=== PATIENT | female | born 1980 | race African-American/Black ===

== ENCOUNTER 2021-01-29 18:14 | Inpatient (IN) | payer BC, OTHER ==
--- NOTE | 2021-01-29 20:54 | RAD REPORT ---
EXAM DESCRIPTION: RAD - Chest Single View - 01/29/2021 8:49 pm CLINICAL HISTORY: SOB COMPARISON: CHEST SINGLE VIEW dated 09/22/2011; CHEST SINGLE VIEW dated 09/21/2011; CHEST SINGLE VIEW dated 09/19/2011 FINDINGS: No evidence of edema or pneumonia. The heart size is within normal limits.No acute osseous abnormality. No significant pleural effusions or pneumothorax. IMPRESSION: No acute cardiopulmonary disease.
[2021-01-29] MEDS ORDERED: ONDANSETRON 4 MG/2 ML VIAL ONE (21:47)
[2021-01-29] MEDS ORDERED: NA CHLORIDE 0.9% 1,000 ML ONE (21:47)
[2021-01-29] MEDS ORDERED: METHYLPREDNISOLONE 125 MG INJ ONE (21:47)
[2021-01-29] MEDS ORDERED: ALBUTEROL INHALER 60 PUFF/8 GM IH ONE (21:47)
[2021-01-29] MEDS ORDERED: MORPHINE 2 MG/ML SYR ONE (21:51)
[2021-01-29 21:52] LABS: ALT/SGPT 51 U/L (12-78); Albumin 3.4 g/dL (3.4-5.0); Alkaline Phosphatase 106 U/L (45-117); BUN Blood Urea Nitrogen 16 mg/dL (7-18); Bicarbonate 27 mmol/L (21-32); Bilirubin Direct 0.2 mg/dL (0-0.2); Bilirubin Total 0.4 mg/dL (0.2-1.0); Glucose Level 98 mg/dL (74-106); Lipase 167 U/L (73-393); Protein, Total 8.9 g/dL (6.4-8.2); Sodium Level 135 mmol/L (136-145); Troponin (Emerg Dept Use Only) < 0.02 ng/mL (0.0-0.045)
[2021-01-29 22:19] LABS: AST/SGOT 90 U/L (15-37); Magnesium 1.7 mg/dL (1.8-2.4); NT PRO-BNP < 5 pg/mL (<125); Potassium 4.2 mmol/L (3.5-5.1)
[2021-01-29 22:43] LABS: Absolute Lymphocytes (CBC) 1.3 K/uL (0.7-4.9); Basophils % 0.4 % (0-1.3); Hematocrit 36.6 % (36.0-45.0); Lymphocytes % 40.7 % (15.3-44.8); MPV 11.8 fL (7.6-11.3); RBC Red Blood Cell Count 4.16 M/uL (3.86-4.86)
[2021-01-29 22:44] LABS: Protime INR 1.22
[2021-01-30] MEDS ORDERED: MORPHINE 2 MG/ML SYR ONE (00:14)
[2021-01-30 02:25] LABS: Urine Blood Negative (Negative); Urine Glucose Negative (Negative); Urine Protein 2+ (Negative); Urine Specific Gravity 1.015 (1.005-1.030); Urine pH 5.5 (5.0-7.0)
--- NOTE | 2021-01-30 02:54 | P.HP ---
Certification for Inpatient Patient admitted to: Observation With expected LOS: <2 Midnights Patient will require the following post-hospital care: None Practitioner: I am a practitioner with admitting privileges, knowledge of patient current condition, hospital course, and medical plan of care. Services: Services provided to patient in accordance with Admission requirements found in Title 42 Section 412.3 of the Code of Federal Regulations <Matthew Anton - Last Filed: 01/30/21 02:51> Patient History Date of Service: 01/30/21 Reason for admission: COVID-19 pneumonia History of Present Illness: 40-year-old -N[place]ien female with history of asthma, hypertension presents emergency department for shortness of breath. Patient reports testing positive for Covid on 01/26/2021, symptoms since 01/24/2021. Patient evaluated in the emergency department, labs significant for elevated D-dimer 1195 sodium 135, chest x-ray/CT PE protocol demonstrate mild groundglass opacities bilaterally. Patient saturating in the low 90s on room air, tachypneic, dyspneic. Patient very symptomatic at this time, ED progress is to be an observation for further evaluation and management. 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 - Family History Mother -: Hypertension Father -: Hypertension - Social History Smoking Status: Never smoker Alcohol use: No CD- Drugs: No Caffeine use: No Place of Residence: Home <Matthew Anton - Last Filed: 01/30/21 02:51> Date of Service: 02/01/21 <Yared Owen - Last Filed: 02/01/21 18:01> Allergies No Known Allergies Allergy (Verified 09/19/11 23:40) Home Medications: Levalbuterol Tartrate [Levalbuterol Tartrate Hfa] 2 puff IH Q4H PRN 01/30/21 hydroCHLOROthiazide [Hydrochlorothiazide*] 12.5 mg PO DAILY 01/30/21 Review of Systems 10-point ROS is otherwise unremarkable Respiratory: Cough, Dry, Shortness of Breath, SOB with Excertion <Matthew Anton - Last Filed: 01/30/21 02:51> Physical Examination - Physical Exam General: Alert, In no apparent distress HEENT: Atraumatic, PERRLA, Mucous membr. moist/pink, EOMI, Sclerae nonicteric Neck: Supple, 2+ carotid pulse no bruit, No LAD, Without JVD or thyroid a bnormality Respiratory: Diminished, Other (Tachypnea) Cardiovascular: Regular rate/rhythm, Normal S1 S2 Capillary refill: <2 Seconds Gastrointestinal: Normal bowel sounds, No tenderness Musculoskeletal: No tenderness Integumentary: No rashes Neurological: Normal speech, Normal strength at 5/5 x4 extr, Normal tone, Normal affect Lymphatics: No axilla or inguinal lymphadenopathy - Studies Laboratory Data (last 24 hrs) 01/29/21 21:18: PT 14.1 H, INR 1.22 01/29/21 21:18: WBC 3.30 L, Hgb 12.2, Hct 36.6, Plt Count 129 L 01/29/21 21:16: Sodium 135 L, Potassium 4.2, BUN 16, Creatinine 1.24, Glucose 98, Magnesium 1.7 L, Total Bilirubin 0.4, AST 90 H, ALT 51, Alkaline Phosphatase 106, Lipase 167 01/29/21 20:43: Lipase Cancelled Microbiology Data (last 24 hrs): 01/29/21 21:38 Throat Group A Streptococcus Rapid Screen - Final 01/29/21 21:38 Nasopharnyx Influenza Type A Antigen Screen - Final 01/29/21 21:38 Nasopharnyx Influenza Type B Antigen Screen - Final <Matthew Anton - Last Filed: 01/30/21 02:51> - Studies Microbiology Data (last 24 hrs): 01/29/21 21:38 Throat Culture & Sensitivity - Final NORMAL UPPER RESPIRATORY LUCA GROWN. <Yared Owen - Last Filed: 02/01/21 18:01> Assessment and Plan - Plan Assessment: Dyspnea, tachypnea secondary to COVID-19 pneumonia complicated with history of asthma Hypertension Obesity Plan: Dyspnea, tachypnea secondary to COVID-19 pneumonia complicated with history of asthma: Continue with IV steroids, oral supplements Daily CRP/ferritin pulmonology consulted. PRN albuterol inhaler. Daily right saturations, room air saturations for home O2, supplemental oxygen as needed. CRP level pending. Negative for PE. Patient nonvaccinated. Hypertension: Obtain and continue medications Obesity: Addressed last factors, patient at risk for worsening of coronavirus pneumonia. DVT PPX: Lovenox Code status: Full Discharge Plan: Home Plan to discharge in: 24 Hours - Advance Directives Does patient have a Living Will: No Does patient have a Durable POA for Healthcare: No - Code Status/Comfort Care Code Status Assessed: Yes (Full code) Critical Care: No Time Spent Managing Pts Care (In Minutes): 55 <Matthew Anton - Last Filed: 01/30/21 02:51> - Problems (Diagnosis) (1) Pneumonia due to COVID-19 virus Current Visit: Yes Status: Acute <Yared Owen - Last Filed: 02/01/21 18:01> Date of Service: 01/30/21 Agree with plan of care as mentioned above. Continue monitoring. Continue with current treatment as mentioned above Subjective: No significant changes Physical Examination: Vitals: Afebrile vital signs are stable Physical exam: Cardiovascular: Within normal limits. Lungs: Basilar rhonchi Abdomen: Within normal limits Neuro: Awake, alert, oriented to person place and time Assessment: 1. COVID-19 pneumonia Plan: 1. Continue with IV steroids 2. Monitor inflammatory markers 3. Repeat chest x-ray is symptoms are progressively worsening 4. O2 per protocol 5. Pulmonary consultation 6. Continue with albuterol inhaler therapy; also supportive care 7. Monitor LFTs 8. GI and DVT prophylax <Yared Owen - Last Filed: 02/01/21 18:01>
[2021-01-30] MEDS ORDERED: ACETAMINOPHEN 500 MG TAB ONE (03:33)
[2021-01-30] MEDS ORDERED: BENZONATATE 100 MG CAP PO ONE (03:33)
[2021-01-30] MEDS ORDERED: NA CHLORIDE 0.9% 1,000 ML ONE (03:33)
[2021-01-30] MEDS ORDERED: Magnesium Sulfate 2gm IVPB 2 G/50 ML BAG IV ONE (03:34)
[2021-01-30] MEDS ORDERED: MELATONIN 5 MG TABLET PO PRN (04:46)
[2021-01-30] MEDS ORDERED: ONDANSETRON 4 MG/2 ML VIAL IV PRN (04:46)
[2021-01-30 06:43] LABS: Absolute Lymphocytes (CBC) 0.7 K/uL (0.7-4.9); Basophils % 0.5 % (0-1.3); Hematocrit 37.1 % (36.0-45.0); Lymphocytes % 32.6 % (15.3-44.8); MPV 10.3 fL (7.6-11.3)
[2021-01-30 07:21] LABS: Bilirubin Total 0.4 mg/dL (0.2-1.0); Ferritin 849.9 ng/mL (8-388); Potassium 5.3 mmol/L (3.5-5.1); Protein, Total 7.7 g/dL (6.4-8.2); Thyroid Stimulating Hormone 0.18 uIU/mL (0.360-3.740)
[2021-01-30] MEDS ORDERED: METHYLPREDNISOLONE 125 MG INJ ONE (08:44)
[2021-01-30] MEDS ORDERED: ASCORBIC ACID 500 MG TABLET ONE ×2 (08:45→13:13)
[2021-01-30] MEDS ORDERED: THIAMINE HCL 100 MG TABLET ONE (08:45)
[2021-01-30] MEDS ORDERED: ASPIRIN EC 81 MG TAB PO ONE (08:45)
[2021-01-30] MEDS ORDERED: ENOXAPARIN 40 MG/0.4 ML SQ ONE (08:45)
[2021-01-30] MEDS ORDERED: ZINC SULFATE 220 MG CAP ONE (08:45)
[2021-01-30] MEDS ORDERED: VITAMIN D 1000 UNIT TAB ONE (08:45)
[2021-01-30] MEDS: METHYLPREDNISOLONE 40 MG INJ IV SCH ×2 (09:00→21:00)
[2021-01-30] MEDS: ENOXAPARIN 40 MG/0.4 ML SQ SCH (09:00)
[2021-01-30] MEDS: IVERMECTIN 3 MG TABLET PO SCH (09:00)
[2021-01-30] MEDS: ASPIRIN EC 81 MG TAB PO SCH (09:00)
[2021-01-30] MEDS: ASCORBIC ACID 500 MG TABLET PO SCH ×4 (09:00→21:00)
[2021-01-30] MEDS: THIAMINE HCL 100 MG TABLET PO SCH (09:00)
[2021-01-30] MEDS: VITAMIN D 1000 UNIT TAB PO SCH (09:00)
[2021-01-30] MEDS: ZINC SULFATE 220 MG CAP PO SCH (09:00)
[2021-01-30 09:08] LABS: Blood Morphology Comment NOT SEEN (NOT SEEN); Platelet Estimate DECR; White Blood Cell Scan OK (OK)
--- NOTE | 2021-01-30 10:44 | P.CNS ---
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 - Family History Father Medical History: Hypertension Mother Medical History: Hypertension - Social History Smoking Status: Never smoker Alcohol use: No CD- Drugs: No Caffeine use: No Place of Residence: Home Physical Examination Temp Pulse Resp BP Pulse Ox 98.0 F 69 20 114/81 98 01/30/21 08:00 01/30/21 08:00 01/30/21 08:00 01/30/21 08:00 01/30/21 08:00 Laboratory Data (last 24 hrs) 01/29/21 21:18: PT 14.1 H, INR 1.22 01/29/21 21:18: WBC 3.30 L, Hgb 12.2, Hct 36.6, Plt Count 129 L 01/29/21 21:16: Sodium 135 L, Potassium 4.2, BUN 16, Creatinine 1.24, Glucose 98, Magnesium 1.7 L, Total Bilirubin 0.4, AST 90 H, ALT 51, Alkaline Phosphatase 106, Lipase 167 01/29/21 20:43: Lipase Cancelled
--- NOTE | 2021-01-30 10:57 | RAD REPORT ---
EXAM DESCRIPTION: Chest For Pe Angio CLINICAL HISTORY: SOB COMPARISON: None Available. TECHNIQUE: CTA of the chest obtained following the uncomplicated intravenous administration of iodin ated contrast. 3-D/MIP reformatted images of the chest available for evaluation. This exam was perfor med according to our departmental dose-optimization program, which includes automated exposure contro l, adjustment of the mA and/or kV according to patient size and/or use of iterative reconstruction te chnique. FINDINGS: Chest: Pulmonary arteries: Contrast bolus is adequate.No filling defects identified in the pulmonary arterie s to suggest pulmonary embolus. Thyroid: No abnormalities of the visualized thyroid. Great Vessels: Great vessels have normal anatomic configuration. Thoracic Aorta: Atherosclerotic calcification of thoracic aorta. Heart: No cardiomegaly, significant pericardial effusion, or coronary artery atherosclerosis Lymph Nodes: No enlarged mediastinal lymph nodes identified. Esophagus: No abnormalities of the esophagus identified. Other: No additional findings. Lungs: Multifocal bilateral peripheral groundglass opacities. Pleura: No pleural effusion or pneumothorax. Trachea/Airways: No abnormalities of the visualized trachea or airways. Bones: No destructive osseous lesions. Upper Abdomen: Limited images of the upper abdomen demonstrate no definite abnormalities of visualize d portions of the liver, pancreas, or spleen. IMPRESSION: 1. No pulmonary embolus. 2. Multifocal bilateral peripheral groundglass opacities. Commonly reported imaging features of vir al pneumonia are present. Other processes such as influenza pneumonia and organizing pneumonia, as ca n be seen with drug toxicity and connective tissue disease, can cause a similar imaging pattern. Electronically signed by: Alexis Davis 01/30/2021 1:57 AM CDT Due to temporary technical issues with the PACS/Fluency reporting system, reports are being signed by the in house radiologist without review as a courtesy to ensure prompt reporting. The interpreting r adiologist is fully responsible for the content of the report.
[2021-01-30] MEDS ORDERED: LIDOCAINE VISCOUS 2% SOLN 15 ML UDC ONE (16:09)
[2021-01-30] MEDS: LIDOCAINE VISCOUS 2% SOLN 15 ML UDC PO PRN (19:40)
[2021-01-30] MEDS: ACETAMINOPHEN 500 MG TAB PO PRN (19:40)
[2021-01-31] MEDS ORDERED: MORPHINE 2 MG/ML SYR IV ONE (04:33)
[2021-01-31 04:49] LABS: Basophils % 0.1 % (0-1.3); Lymphocytes % 13.1 % (15.3-44.8); MPV 10.5 fL (7.6-11.3); RBC Red Blood Cell Count 4.48 M/uL (3.86-4.86)
[2021-01-31 05:23] LABS: ALT/SGPT 54 U/L (12-78); AST/SGOT 76 U/L (15-37); Albumin 3.1 g/dL (3.4-5.0); Alkaline Phosphatase 87 U/L (45-117); BUN Blood Urea Nitrogen 17 mg/dL (7-18); Bicarbonate 26 mmol/L (21-32); Bilirubin Total 0.5 mg/dL (0.2-1.0); Ferritin 868.5 ng/mL (8-388); Glucose Level 165 mg/dL (74-106); Potassium 4.4 mmol/L (3.5-5.1); Protein, Total 7.8 g/dL (6.4-8.2); Sodium Level 136 mmol/L (136-145)
[2021-01-31] MEDS: METHYLPREDNISOLONE 40 MG INJ IV SCH ×2 (09:03→19:48)
[2021-01-31] MEDS: ENOXAPARIN 40 MG/0.4 ML SQ SCH (09:05)
[2021-01-31] MEDS: THIAMINE HCL 100 MG TABLET PO SCH (09:05)
[2021-01-31] MEDS: VITAMIN D 1000 UNIT TAB PO SCH (09:05)
[2021-01-31] MEDS: ASPIRIN EC 81 MG TAB PO SCH (09:05)
[2021-01-31] MEDS: ASCORBIC ACID 500 MG TABLET PO SCH ×4 (09:05→19:48)
[2021-01-31] MEDS: ZINC SULFATE 220 MG CAP PO SCH (09:05)
[2021-01-31] MEDS: LIDOCAINE VISCOUS 2% SOLN 15 ML UDC PO PRN ×2 (09:06→16:44)
--- NOTE | 2021-01-31 10:07 | P.PN ---
Date of Service: 01/31/21 Subjective Patient clinically doing well with no new complaints. Review of Systems 10-point ROS is otherwise unremarkable Physical Examination - Vital Signs reviewed - Physical Exam General: Alert, In no apparent distress, Oriented x3 Respiratory: Diminished Cardiovascular: Regular rate/rhythm, Normal S1 S2, No murmurs Gastrointestinal: Normal bowel sounds, Soft and benign, Non-distended, No tenderness Musculoskeletal: No clubbing, No swelling, No tenderness Neurological: Normal strength at 5/5 x4 extr, Sensation intact, Cranial nerves 3-12 intact Assessment & Plan - Problems (Diagnosis) (1) Pneumonia due to COVID-19 virus Current Visit: Yes Status: Acute - Plan Continue with plan of care as mentioned above: 1. Continue with steroids 2. Plan for discharge tomorrow so she can get monoclonal antibody therapy @ [facility] 3. Monitor symptoms prior to discharge and if she is feeling better then anticipate discharge home; otherwise, patient may need to stay additional 24-48 hr 4. Monitor O2 sats at room air 5. GI and DVT prophylaxis
--- NOTE | 2021-01-31 10:07 | P.PN ---
Subjective Date of Service: 01/30/21 Patient continues to do well. Patient clinical symptoms are fairly stable and she remains on room air oxygen. Patient has appointment for monoclonal antibodies tomorrow. Have encouraged her to try to get this done at [facility] as she is scheduled especially if she is feeling much better. Patient still tachypneic upon exertion. Hopefully, her clinical condition continues to improve. Review of Systems 10-point ROS is otherwise unremarkable Physical Examination - Vital Signs Temperature: 97.4 F Blood Pressure: 111/77 Pulse: 61 Respirations: 22 Pulse Ox (%): 96 - Physical Exam General: Alert, In no apparent distress, Oriented x3 Respiratory: Diminished Cardiovascular: Regular rate/rhythm, Normal S1 S2, No murmurs Gastrointestinal: Normal bowel sounds, Soft and benign, Non-distended, No tenderness Musculoskeletal: No clubbing, No swelling, No tenderness Neurological: Normal strength at 5/5 x4 extr, Sensation intact, Cranial nerves 3-12 intact - Studies Laboratory Data (last 24 hrs) 01/31/21 04:20: Sodium 136, Potassium 4.4, BUN 17, Creatinine 0.83, Glucose 165 H, Total Bilirubin 0.5, AST 76 H, ALT 54, Alkaline Phosphatase 87 01/31/21 04:20: WBC 7.40 D, Hgb 13.0, Hct 39.0, Plt Count 154 Medications List Reviewed: Yes Assessment & Plan - Problems (Diagnosis) (1) Pneumonia due to COVID-19 virus Current Visit: Yes Status: Acute - Plan Plan: 1. Continue with steroids 2. Plan for discharge tomorrow so she can get monoclonal antibody therapy 8 [facility] 3. Discharge with antibiotics 4. Monitor O2 sats at room air 5. GI and DVT prophylaxis - Advance Directives Does patient have a Living Will: No Does patient have a Durable POA for Healthcare: No
--- NOTE | 2021-01-31 17:03 | ER ---
Nurse's Notes [facility] Name: Evi Recinos Age: 40 yrs Sex: Female : 1980 Arrival Date: 01/29/2021 Time: 18:15 Bed 14 Private MD: Diagnosis: COVID Pneumonia;Dyspnea on Exertion Presentation: 01/29 18:15 Chief complaint: Patient states: Feeling bad since Saturday. Diagnosed with Covid on . Pt is here today because she has developed shortness of breath and diarrhea in the past two days. Coronavirus screen: diarrhea, difficulty breathing, fatigue, Client presents with at least one sign or symptom that may indicate coronavirus-19. Standard/surgical mask placed on the client. Provider contacted for isolation considerations. Ebola Screen: Patient denies exposure to infectious person. Patient denies travel to an Ebola-affected area in the 21 days before illness onset. Initial Sepsis Screen: Does the patient meet any 2 criteria? RR > 20 per min. HR > 90 bpm. Does the patient have a suspected source of infection? No. Patient's initial sepsis screen is negative. Risk Assessment: Do you want to hurt yourself or someone else? Patient reports no desire to harm self or others. Onset of symptoms was January 24, 2021. 18:15 Method Of Arrival: Ambulatory 18:15 Acuity: SHIRAZ 3 ss CHILD WELFARE SPECIALIST: 01/30 01:38 LMP N/A - bb Historical: - Allergies: 01/29 18:17 No Known Allergies; - PMHx: 18:17 Asthma; Hypertensive disorder; - PSHx: 18:17 D\T\C; ss - Immunization history:: Adult Immunizations up to date. - Social history:: Smoking status: Patient denies any tobacco usage or history of. Screenin:43 Abuse screen: Denies threats or abuse. Denies injuries from another. Nutritional zb screening: No deficits noted. Tuberculosis screening: No symptoms or risk factors identified. Fall Risk None identified. Assessment: 21:43 General: Appears uncomfortable, Behavior is calm, cooperative, Reports chills for >3 zb days, fever for > 3 days, feeling ill for > 3 days, fatigue for >3 days. Pain: Complains of pain in body aches. Neuro: Level of Consciousness is awake, alert, obeys commands, Reports weakness in generalized. Cardiovascular: Capillary refill < 3 seconds. Respiratory: Reports shortness of breath at rest cough that is non-productive, persistent Airway is patent Trachea midline Respiratory effort is even, unlabored, Respiratory pattern is regular, symmetrical, the patient has moderate shortness of breath. GI: Abdomen is flat, Reports diarrhea, nausea. Derm: Skin is intact, is healthy with good turgor, Skin is dry, Skin is normal. Musculoskeletal: Range of motion: intact in all extremities. 22:40 Reassessment: Patient appears in no apparent distress at this time. Patient and/or zb family updated on plan of care and expected duration. Pain level reassessed. Patient is alert, oriented x 3, equal unlabored respirations, skin warm/dry/pink. c/o pain medication ordered and given. 23:45 Reassessment: Patient appears in no apparent distress at this time. Patient and/or zb family updated on plan of care and expected duration. Pain level reassessed. Patient is alert, oriented x 3, equal unlabored respirations, skin warm/dry/pink. patient currently resting. 01/30 01:36 Reassessment: pt returned from CT scan via stretcher with bone density technician. bb 02:08 Reassessment: pt assisted to bathroom states she is dizzy, tachypneic, SOB, pulse rate bb increased to 102, O2 93%. 03:32 Reassessment: pt resting quietly, eyes closed, resp tachyneic, pt is admitted to ED bb hold. Vital Signs: 01/29 18:15 BP 105 / 68; Pulse 99; Resp 22; Temp 99.2(O); Pulse Ox 100% on R/A; Weight 104.33 kg; ss Height 5 ft. 7 in. (170.18 cm); Pain 6/10; 21:42 BP 109 / 77; Pulse 82; Resp 20; Temp 99.8; Pulse Ox 96% on R/A; Pain 8/10; zb 01/30 00:20 BP 102 / 71; Pulse 75; Resp 16; Pulse Ox 95% on R/A; zb 02:08 BP 116 / 75; Pulse 74; Resp 30 S; Pulse Ox 97% on R/A; bb 03:34 BP 108 / 72; Pulse 68; Resp 20 S; Pulse Ox 97% ; bb 01/29 18:15 Body Mass Index 36.02 (104.33 kg, 170.18 cm) ED Course: 01/29 18:15 Patient arrived in ED. am2 18:17 Triage completed. ss 18:17 Arm band placed on right wrist. ss 20:09 Mario Rodas MD is Attending Physician. 7 20:12 Dash Ortega, RN is Primary Nurse. jb4 20:49 Chest Single View In Process Unspecified. EDMS 21:43 Inserted saline lock: 20 gauge in right antecubital area, using aseptic technique. zb Blood collected. 01/30 01:13 Inserted saline lock: 20 gauge in left antecubital area, using aseptic technique. zb 01:37 CT Chest For PE Angio In Process Unspecified. EDMS 01:38 Patient has correct armband on for positive identification. bb 01:38 No provider procedures requiring assistance completed. bb 02:26 Urine collected: clean catch specimen, clear. bb 02:27 Patient admitted, IV remains in place. bb 02:46 Yared Owen MD is Hospitalizing Provider. 7 Administered Medications: 01/29 21:40 Drug: Zofran (Ondansetron) 4 mg Route: IVP; Site: right antecubital; zb 01/30 00:18 Follow up: Response: No adverse reaction; Nausea is decreased zb 01/29 21:41 Drug: NS 0.9% 1000 ml Route: IV; Rate: 1000 ml; Site: right antecubital; zb 01/30 00:18 Follow up: Response: No adverse reaction; IV Status: Completed infusion; IV Intake: zb 1000ml 01/29 21:41 Drug: SOLU-Medrol (methylPrednisoLONE) 125 mg Route: IVP; Site: right antecubital; zb 23:59 Follow up: Response: No adverse reaction; Pain is decreased zb 21:41 Drug: Albuterol HFA Inhaler 2 puffs Route: Inhalation; zb 01/30 00:19 Follow up: Response: No adverse reaction zb 01/29 21:41 Drug: morphine 2 mg {Note: RASS +1.} Route: IVP; Site: right antecubital; zb 22:00 Follow up: Response: No adverse reaction; Pain is decreased; RASS: Alert and Calm (0) zb 23:59 Drug: morphine 2 mg Route: IVP; Site: right antecubital; zb 01/30 00:18 Follow up: Response: No adverse reaction; Pain is decreased; RASS: Drowsy (-1) zb 03:15 Drug: NS 0.9% 1000 ml Route: IV; Rate: 1000 ml; Site: right antecubital; bb 04:15 Follow up: IV Status: Completed infusion; IV Intake: 1000ml bb 03:15 Drug: Tylenol 1000 mg Route: PO; bb 06:48 Follow up: Response: No adverse reaction bb 03:15 Drug: Tessalon Perle (benzonatate) 100 mg Route: PO; bb 06:49 Follow up: Response: No adverse reaction bb 03:31 Drug: Magnesium Sulfate 1 grams Route: IVPB; Infused Over: 1 hrs; Site: right bb antecubital; 04:30 Follow up: IV Status: Completed infusion; IV Intake: 25ml bb Intake: 00:18 IV: 1000ml; Total: 1000ml. zb 04:15 IV: 1000ml; Total: 2000ml. bb 04:30 IV: 25ml; Total: 2025ml. bb Outcome: 02:27 Instructed on the need for admit. bb 02:47 Decision to Hospitalize by Provider. [facility] 03:36 Admitted to ER Hold. Please see [facility] for further documentation. bb 03:36 Condition: stable 16:03 Patient left the ED. ph Signatures: Dispatcher [employer] Brittany Marr RN RN bb Smirch, Shelby, RN RN ss Hall, Patricia, RN RN Dash Ortega RN RN [email or web address] Moreno, Amanda am2 Holmes, Maurice, MD MD Elisabet Reyes RN RN zb
--- NOTE | 2021-01-31 17:03 | EDPHYS ---
Physician Documentation [facility] Name: Evi Recinos Age: 40 yrs Sex: Female : 1980 Arrival Date: 01/29/2021 Time: 18:15 Bed 14 Private MD: ED Physician Mario Rodas HPI: 01/29 20:35 This 40 yrs old Black Female presents to ER via Ambulatory with complaints of covid+, mh7 Shortness Of Breath. 20:35 The patient has shortness of breath at rest, with light activity. Onset: The mh7 symptoms/episode began/occurred 3 day(s) ago. Duration: The symptoms are continuous, and are steadily getting worse. The patient's shortness of breath is aggravated by coughing, light activity, is alleviated by nothing. Associated signs and symptoms: Pertinent positives: non-productive cough, fever, nausea, Diarrhea, Pertinent negatives: chest pain, diaphoresis, dizziness, hemoptysis, loss of consciousness, numbness in extremities, visual changes, vomiting. Severity of symptoms: At their worst the symptoms were moderate yesterday, in the emergency department the symptoms are unchanged. Patient reports she started having coughing, body aches, low-grade fever about 5 days ago. She tested positive for Covid 2 days later. Started feeling shortness of breath in addition to the coughing, body aches, low-grade fever. He also complains of nausea, diarrhea, and sore throat.. 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 - Social history:: Smoking status: Patient denies any tobacco usage or history of. ROS: 20:35 Eyes: Negative for injury, pain, redness, and discharge, Neck: Negative for injury, mh7 pain, and swelling, Cardiovascular: Negative for chest pain, palpitations, and edema. 20:35 Back: Negative for injury and pain, : Negative for injury, bleeding, discharge, and swelling, MS/Extremity: Negative for injury and deformity, Skin: Negative for injury, rash, and discoloration, Neuro: Negative for headache, weakness, numbness, tingling, and seizure, Psych: Negative for depression, anxiety, suicide ideation, homicidal ideation, and hallucinations, Allergy/Immunology: Negative for hives, rash, and allergies, Endocrine: Negative for neck swelling, polydipsia, polyuria, polyphagia, and marked weight changes, Hematologic/Lymphatic: Negative for swollen nodes, abnormal bleeding, and unusual bruising. 20:35 Abdomen/GI: Negative for abdominal pain, vomiting, constipation, abdominal cramps, abdominal distension, anorexia, dysphagia, hematemesis, black/tarry stool, rectal pain, rectal bleeding, bowel incontinence, flatulence. Exam: 20:35 Head/Face: Normocephalic, atraumatic. Eyes: Pupils equal round and reactive to light, mh7 extra-ocular motions intact. Lids and lashes normal. Conjunctiva and sclera are non-icteric and not injected. Cornea within normal limits. Periorbital areas with no swelling, redness, or edema. 20:35 Neck: Trachea midline, no thyromegaly or masses palpated, and no cervical lymphadenopathy. Supple, full range of motion without nuchal rigidity, or vertebral point tenderness. No Meningismus. Chest/axilla: Normal chest wall appearance and motion. Nontender with no deformity. No lesions are appreciated. Cardiovascular: Regular rate and rhythm with a normal S1 and S2. No gallops, murmurs, or rubs. Normal PMI, no JVD. No pulse deficits. Respiratory: Lungs have equal breath sounds bilaterally, clear to auscultation and percussion. No rales, rhonchi or wheezes noted. No increased work of breathing, no retractions or nasal flaring. Abdomen/GI: Soft, non-tender, with normal bowel sounds. No distension or tympany. No guarding or rebound. No evidence of tenderness throughout. Back: No spinal tenderness. No costovertebral tenderness. Full range of motion. Skin: Warm, dry with normal turgor. Normal color with no rashes, no lesions, and no evidence of cellulitis. MS/ Extremity: Pulses equal, no cyanosis. Neurovascular intact. Full, normal range of motion. Neuro: Awake and alert, GCS 15, oriented to person, place, time, and situation. Cranial nerves II-XII grossly intact. Motor strength 5/5 in all extremities. Sensory grossly intact. Cerebellar exam normal. Normal gait. Psych: Awake, alert, with orientation to person, place and time. Behavior, mood, and affect are within normal limits. 20:35 Constitutional: The patient appears in no acute distress, alert, awake, uncomfortable. 20:35 ENT: Mouth: Oral mucosa: noted to have ulceration(s), Posterior pharynx: Airway: normal, Tonsils: bilaterally enlarged, with erythema, with ulcerations, Uvula: normal, swelling, is not appreciated, erythema, that is mild, exudate, that is mild, peritonsillar mass, is not appreciated, pooling of secretions, is not appreciated, Dental exam: normal, Voice: is normal. Vital Signs: 18:15 BP 105 / 68; Pulse 99; Resp 22; Temp 99.2(O); Pulse Ox 100% on R/A; Weight 104.33 kg; ss Height 5 ft. 7 in. (170.18 cm); Pain 6/10; 21:42 BP 109 / 77; Pulse 82; Resp 20; Temp 99.8; Pulse Ox 96% on R/A; Pain 8/10; zb 01/30 00:20 BP 102 / 71; Pulse 75; Resp 16; Pulse Ox 95% on R/A; zb 02:08 BP 116 / 75; Pulse 74; Resp 30 S; Pulse Ox 97% on R/A; bb 03:34 BP 108 / 72; Pulse 68; Resp 20 S; Pulse Ox 97% ; bb 01/29 18:15 Body Mass Index 36.02 (104.33 kg, 170.18 cm) ss MDM: 02:45 Differential diagnosis: Anemia Anxiety Reaction asthma, Bronchitis Chronic Obstructive mh7 Pulmonary Disease pneumonia, Pneumothorax Psychogenic pulmonary edema, Pulmonary Embolism reactive airway disease. Data reviewed: vital signs, nurses notes, lab test result(s), cardiac enzymes, CBC, electrolytes, urinalysis, EKG, radiologic studies, CT scan, plain films. Data interpreted: Pulse oximetry: on room air is 97 %. Interpretation: normal. Counseling: I had a detailed discussion with the patient and/or guardian regarding: the historical points, exam findings, and any diagnostic results supporting the discharge/admit diagnosis, lab results, radiology results, the need for further work-up and treatment in the hospital. Response to treatment: the patient's symptoms have mildly improved after treatment. 02:47 Patient medically screened. [facility] 01/29 20:41 Order name: Basic Metabolic Panel [facility] 01/29 20:41 Order name: CBC with Diff [facility] 01/29 20:41 Order name: LFT's [facility] 01/29 20:41 Order name: Magnesium [facility] 01/29 20:41 Order name: NT PRO-BNP [facility] 01/29 20:41 Order name: PT-INR; Complete Time: 22:51 [facility] 01/29 20:41 Order name: Troponin (emerg Dept Use Only) [facility] 01/29 20:41 Order name: Test, Serum; Complete Time: 00:12 [facility] 01/29 20:42 Order name: Basic Metabolic Panel [facility] 01/29 20:42 Order name: CBC with Automated Diff; Complete Time: 22:51 [facility] 01/29 20:42 Order name: Liver (Hepatic) Function [facility] 01/29 20:42 Order name: Magnesium [facility] 01/29 20:42 Order name: NT PRO-BNP [facility] 01/29 20:43 Order name: Rapid Strep; Complete Time: 00:12 [facility] 01/29 20:43 Order name: Influenza Screen (a \T\ B); Complete Time: 00:12 [facility] 01/29 21:24 Order name: Lipase [facility] 01/29 22:34 Order name: Lactate; Complete Time: 00:12 [facility] 01/29 22:39 Order name: D-Dimer; Complete Time: 22:51 [facility] 01/29 23:25 Order name: Throat Culture [facility] 01/30 02:25 Order name: Urine Dipstick-Ancillary; Complete Time: 02:31 [facility] 01/30 02:35 Order name: CRP bb 01/30 02:35 Order name: C-Reactive Protein [facility] 01/30 03:26 Order name: C-Reactive Protein [facility] 01/30 06:53 Order name: CBC with Automated Diff [facility] 01/30 07:22 Order name: Comprehensive Metabolic Panel [facility] 01/30 07:22 Order name: T4 Free [facility] 01/30 07:22 Order name: Thyroid Stimulating Hormone [facility] 01/30 07:22 Order name: Ferritin [facility] 01/29 20:33 Order name: Chest Single View; Complete Time: 21:10 [facility] 01/29 20:41 Order name: EKG; Complete Time: 20:42 [facility] 01/29 20:41 Order name: Cardiac monitoring; Complete Time: 00:21 [facility] 01/29 20:41 Order name: EKG - Nurse/Tech; Complete Time: 00:21 [facility] 01/29 20:41 Order name: IV Saline Lock; Complete Time: 21:42 [facility] 01/29 20:41 Order name: Labs collected and sent; Complete Time: 21:42 [facility] 01/29 20:41 Order name: O2 Per Protocol; Complete Time: 21:42 [facility] 01/29 20:41 Order name: O2 Sat Monitoring; Complete Time: 21:42 [facility] 01/29 20:41 Order name: Urine Dipstick-Ancillary (obtain specimen); Complete Time: 02:26 [facility] 01/29 22:52 Order name: CT Chest For PE Angio [facility] 01/30 09:08 Order name: CBC Smear Scan EDMS Administered Medications: 01/29 21:40 Drug: Zofran (Ondansetron) 4 mg Route: IVP; Site: right antecubital; 01/30 00:18 Follow up: Response: No adverse reaction; Nausea is decreased 01/29 21:41 Drug: NS 0.9% 1000 ml Route: IV; Rate: 1000 ml; Site: right antecubital; b 01/30 00:18 Follow up: Response: No adverse reaction; IV Status: Completed infusion; IV Intake: zb 1000ml 01/29 21:41 Drug: SOLU-Medrol (methylPrednisoLONE) 125 mg Route: IVP; Site: right antecubital; zb 23:59 Follow up: Response: No adverse reaction; Pain is decreased zb 21:41 Drug: Albuterol HFA Inhaler 2 puffs Route: Inhalation; b 01/30 00:19 Follow up: Response: No adverse reaction 01/29 21:41 Drug: morphine 2 mg {Note: RASS +1.} Route: IVP; Site: right antecubital; zb 22:00 Follow up: Response: No adverse reaction; Pain is decreased; RASS: Alert and Calm (0) zb 23:59 Drug: morphine 2 mg Route: IVP; Site: right antecubital; zb 01/30 00:18 Follow up: Response: No adverse reaction; Pain is decreased; RASS: Drowsy (-1) zb 03:15 Drug: NS 0.9% 1000 ml Route: IV; Rate: 1000 ml; Site: right antecubital; bb 04:15 Follow up: IV Status: Completed infusion; IV Intake: 1000ml bb 03:15 Drug: Tylenol 1000 mg Route: PO; bb 06:48 Follow up: Response: No adverse reaction bb 03:15 Drug: Tessalon Perle (benzonatate) 100 mg Route: PO; bb 06:49 Follow up: Response: No adverse reaction bb 03:31 Drug: Magnesium Sulfate 1 grams Route: IVPB; Infused Over: 1 hrs; Site: right bb antecubital; 04:30 Follow up: IV Status: Completed infusion; IV Intake: 25ml bb Disposition Summary: 01/30/21 02:47 Hospitalization Ordered Hospitalization Status: Observation [facility] Provider: Yared Owen Condition: Stable [facility] Problem: new [facility] Symptoms: have improved [facility] Bed/Room Type: Standard [facility] Location: Intensive Care Unit(01/30/21 14:13) [facility] Room Assignment: 6-(01/30/21 14:13) [facility] Diagnosis - COVID Pneumonia [facility] - Dyspnea on Exertion [facility] Forms: - Medication Reconciliation Form [facility] - SBAR form [facility] Signatures: Dispatcher [employer] EDMS Brittany Alvarez RN Leigha Murray RN RN ss Attema, Lee, 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 EDMS EDMS 21:24 20:44 LIPASE+C.LAB.BRZ ordered. EDMS EDMS 22:39 22:34 D-DIMER+COAG.LAB.BRZ ordered. EDMS EDMS 01/30 04:43 02:47 [place]metry/Med[place] ([place] [facility] [place] 02:47 [facility] [place] 14:13 04:43 [facility] ER HOLD cg ja1 14:13 04:43 ERHOLD- cg ja1
[2021-02-01] MEDS: THIAMINE HCL 100 MG TABLET PO SCH (09:20)
[2021-02-01] MEDS: ENOXAPARIN 40 MG/0.4 ML SQ SCH (09:20)
[2021-02-01] MEDS: VITAMIN D 1000 UNIT TAB PO SCH (09:20)
[2021-02-01] MEDS: METHYLPREDNISOLONE 40 MG INJ IV SCH ×2 (09:20→21:19)
[2021-02-01] MEDS: ZINC SULFATE 220 MG CAP PO SCH (09:20)
[2021-02-01] MEDS: LIDOCAINE VISCOUS 2% SOLN 15 ML UDC PO PRN (09:20)
[2021-02-01] MEDS: ASCORBIC ACID 500 MG TABLET PO SCH ×4 (09:20→21:00)
[2021-02-01] MEDS: ASPIRIN EC 81 MG TAB PO SCH (09:20)
[2021-02-01] MEDS: IVERMECTIN 3 MG TABLET PO SCH (09:23)
[2021-02-01] MEDS: ACETAMINOPHEN 500 MG TAB PO PRN (09:28)
[2021-02-01] MEDS ORDERED: NA CHLORIDE 0.9% 250 ML IV ONE (16:00)
[2021-02-01] MEDS: NA CHLORIDE 0.9% 1,000 ML IV SCH (16:35)
[2021-02-02] MEDS: NA CHLORIDE 0.9% 1,000 ML IV SCH (05:20)
[2021-02-02] MEDS: IPRATROPIUM BROM 0.5MG/2.5ML NEB PRN ×2 (08:32→14:01)
[2021-02-02] MEDS: ALBUTEROL 2.5 MG/3 ML NEB SOL NEB PRN ×2 (08:32→14:01)
[2021-02-02] MEDS: METHYLPREDNISOLONE 40 MG INJ IV SCH ×2 (08:42→20:22)
[2021-02-02] MEDS: ENOXAPARIN 40 MG/0.4 ML SQ SCH (08:42)
[2021-02-02] MEDS: THIAMINE HCL 100 MG TABLET PO SCH (08:42)
[2021-02-02] MEDS: ASPIRIN EC 81 MG TAB PO SCH (08:42)
[2021-02-02] MEDS: VITAMIN D 1000 UNIT TAB PO SCH (08:42)
[2021-02-02] MEDS: ZINC SULFATE 220 MG CAP PO SCH (08:42)
[2021-02-02] MEDS: ASCORBIC ACID 500 MG TABLET PO SCH ×5 (08:42→20:22)
--- NOTE | 2021-02-02 08:53 | ECHO ---
HEIGHT: 5 ft 7 in WEIGHT: 260 lb 8 oz DATE OF STUDY: 02/01/[address]: Yared Owen MD 2-DIMENSIONAL: YES M.MODE: YES DOPPLER: YES COLOR FLOW: YES TDS: NO PORTABLE: YES DEFINITY: NO BUBBLE STUDY: NO DIAGNOSIS: SHORTNESS OF BREATH CARDIAC HISTORY: CATHERIZATION: NO SURGERY: NO PROSTHETIC VALVE: NO PACEMAKER: NO MEASUREMENTS (cm) DIASTOLIC (NORMALS) SYSTOLIC (NORMALS) IVSd 0.8 (0.6-1.2) LA Diam 2.8 (1.9-4.0) LVEF 75% LVIDd 5.4 (3.5-5.7) LVIDs 3.0 (2.0-3.5) %FS 44% LVPWd 0.9 (0.6-1.2) Ao Diam 2.5 (2.0-3.7) 2 DIMENSIONAL ASSESSMENT: RIGHT ATRIUM: NORMAL LEFT ATRIUM: NORMAL RIGHT VENTRICLE: NORMAL LEFT VENTRICLE: NORMAL TRICUSPID VALVE: NORMAL MITRAL VALVE: NORMAL PULMONIC VALVE: NORMAL AORTIC VALVE: NORMAL PERICARDIAL EFFUSION: NONE AORTIC ROOT: NORMAL LEFT VENTRICULAR WALL MOTION: NORMAL DOPPLER/COLOR FLOW: MILD TRICUSPID REGURGITATION. COMMENTS: MILD TRICUSPID REGURGITATION. NORMAL RIGHT VENTRICULAR SYSTOLIC PRESSURE. NORMAL LEFT VENTRICULAR SIZE AND FUNCTION. NO WALL MOTION ABNORMALITY. NO EFFUSION. TECHNOLOGIST: Pepe MALDONADO
--- NOTE | 2021-02-02 09:12 | P.PN ---
Subjective Date of Service: 02/02/21 Chief Complaint: COVID-19 pneumonia Subjective: Improving (Doign well/ C?O chest pressure/ HXof Asthma) Review of Systems Respiratory: Shortness of Breath Physical Examination - Vital Signs Temperature: 97.0 F Blood Pressure: 139/98 Pulse: 62 Respirations: 34 Pulse Ox (%): 94 - Physical Exam General: Alert, In no apparent distress, Oriented x3, Cooperative - Studies Microbiology Data (last 24 hrs): 01/29/21 21:38 Throat Culture & Sensitivity - Final NORMAL UPPER RESPIRATORY LUCA GROWN. Medications List Reviewed: Yes Assessment & Plan - Problems (Diagnosis) (1) Pneumonia due to COVID-19 virus Current Visit: Yes Status: Acute Plan: PT is doign well/ Hxof Asthma/ plan for DC today on Dulera and pred/ Doen not require O2/ VS stable
[2021-02-02] MEDS: DULERA 200/5 (MOMETASONE/FORMOTEROL) INHALER IH SCH ×2 (12:50→20:22)
[2021-02-02] MEDS ORDERED: D5W 1,000 ML with NA BICARB 8.4% 150 MEQ IV SCH ×2 (14:00)
[2021-02-03] MEDS: BENZONATATE 100 MG CAP PO PRN ×2 (04:18→11:20)
[2021-02-03] MEDS: ACETAMINOPHEN 500 MG TAB PO PRN (04:18)
[2021-02-03 05:50] LABS: BUN Blood Urea Nitrogen 11 mg/dL (7-18); Bicarbonate 27 mmol/L (21-32); Glucose Level 170 mg/dL (74-106); Potassium 3.8 mmol/L (3.5-5.1); Sodium Level 141 mmol/L (136-145)
[2021-02-03 06:07] LABS: Ferritin 368.4 ng/mL (8-388)
[2021-02-03 06:08] VITALS: BMI 40.6
--- NOTE | 2021-02-03 07:23 | P.PN ---
Date of Service: 02/01/21 Subjective Patient having some episodes of anxiety and feeling like she cannot catch her breath. Feels really congested at times as well. Hemodynamically she was very stable. Review of Systems 10-point ROS is otherwise unremarkable Physical Examination - Vital Signs reviewed - Physical Exam General: Alert, In no apparent distress, Oriented x3 Respiratory: Clear bilaterally Cardiovascular: Regular rate/rhythm, Normal S1 S2, No murmurs Gastrointestinal: Normal bowel sounds, Soft and benign, Non-distended, No tende rness Musculoskeletal: No clubbing, No swelling, No tenderness Neurological: Normal strength at 5/5 x4 extr, Sensation intact, Cranial nerves 3-12 intact Assessment & Plan - Problems (Diagnosis) (1) Pneumonia due to COVID-19 virus Current Visit: Yes Status: Acute - Plan Continue with plan of care as mentioned above: 1. Continue with steroids 2. Patient did not want to get the monoclonal antibody therapy. She did not feel well enough to leave. Continue with current treatment plan. Monitor inflammatory markers. 3. Continue neb treatments as needed 4. GI and DVT prophylaxis
--- NOTE | 2021-02-03 07:28 | P.PN ---
Date of Service: 02/02/21 Subjective Patient is doing better today. She got a breathing treatment and that made her feel a lot better. Continue with current plan of care. Monitor her closely. Her inflammatory markers have gone up a little bit. Review of Systems 10-point ROS is otherwise unremarkable Physical Examination - Vital Signs reviewed - Physical Exam General: Alert, In no apparent distress, Oriented x3 Respiratory: Clear bilaterally Cardiovascular: Regular rate/rhythm, Normal S1 S2, No murmurs Gastrointestinal: Normal bowel sounds, Soft and benign, Non-distended, No tenderness Musculoskeletal: No clubbing, No swelling, No tenderness Neurological: Normal strength at 5/5 x4 extr, Sensation intact, Cranial nerves 3-12 intact Assessment & Plan - Problems (Diagnosis) (1) Pneumonia due to COVID-19 virus Current Visit: Yes Status: Acute - Plan Continue with plan of care as mentioned above: 1. Continue with steroids 2. Patient only starts feeling better today. Not as lightheaded when she got up. Still gets a little tachypneic. Continue monitoring closely. 3. Continue neb treatments as needed 4. GI and DVT prophylaxis
[2021-02-03] MEDS ORDERED: POTASSIUM 25 MEQ EFFERV TAB PO ONE (09:00)
[2021-02-03] MEDS: DULERA 200/5 (MOMETASONE/FORMOTEROL) INHALER IH SCH ×2 (09:00→20:33)
[2021-02-03] MEDS ORDERED: BARICITINIB 2 MG TABLET PO SCH (09:00)
[2021-02-03] MEDS: THIAMINE HCL 100 MG TABLET PO SCH (09:48)
[2021-02-03] MEDS: ENOXAPARIN 40 MG/0.4 ML SQ SCH (09:48)
[2021-02-03] MEDS: ZINC SULFATE 220 MG CAP PO SCH (09:48)
[2021-02-03] MEDS: ASCORBIC ACID 500 MG TABLET PO SCH ×4 (09:48→20:32)
[2021-02-03] MEDS: VITAMIN D 1000 UNIT TAB PO SCH (09:48)
[2021-02-03] MEDS: METHYLPREDNISOLONE 40 MG INJ IV SCH ×2 (09:48→20:34)
[2021-02-03] MEDS: ASPIRIN EC 81 MG TAB PO SCH (09:49)
[2021-02-03] MEDS: NYSTATIN 500,000 UNIT/5 ML UDC PO SCH ×4 (10:26→20:33)
[2021-02-03] MEDS: clonazePAM 0.5 MG TAB PO SCH ×2 (10:26→20:33)
--- NOTE | 2021-02-03 11:00 | RAD REPORT ---
EXAM DESCRIPTION: Sandra Single View02/03/2021 10:03 am CLINICAL HISTORY: Chest pain COMPARISON: January 30 2021 FINDINGS: Mild to moderate bilateral pulmonary opacities without significant change. The heart is mildly enlarged IMPRESSION: No significant change in a mild to moderate bilateral pneumonia
[2021-02-04] MEDS: ASPIRIN EC 81 MG TAB PO SCH (08:54)
[2021-02-04] MEDS: ASCORBIC ACID 500 MG TABLET PO SCH ×4 (08:54→20:51)
[2021-02-04] MEDS: clonazePAM 0.5 MG TAB PO SCH ×2 (08:54→20:51)
[2021-02-04] MEDS: METHYLPREDNISOLONE 40 MG INJ IV SCH ×3 (08:55→20:51)
[2021-02-04] MEDS: THIAMINE HCL 100 MG TABLET PO SCH (08:55)
[2021-02-04] MEDS: VITAMIN D 1000 UNIT TAB PO SCH (08:55)
[2021-02-04] MEDS: NYSTATIN 500,000 UNIT/5 ML UDC PO SCH ×4 (08:55→20:51)
[2021-02-04] MEDS: ZINC SULFATE 220 MG CAP PO SCH (08:55)
[2021-02-04] MEDS: DULERA 200/5 (MOMETASONE/FORMOTEROL) INHALER IH SCH ×2 (08:55→20:52)
[2021-02-04] MEDS: ENOXAPARIN 40 MG/0.4 ML SQ SCH (08:55)
[2021-02-04 11:13] LABS: Arterial Blood Carboxyhemoglob 0.8 % (0-1.5); Blood Gas Oxyhemoglobin 89.1 % (94-97); Blood O2 Saturation 90.7 % (92-98.5)
[2021-02-04] MEDS: ARFORMOTEROL TARTRATE 15 MCG/2 ML VIAL.NEB NEB SCH ×2 (11:55→20:10)
--- NOTE | 2021-02-04 11:59 | P.PN ---
Subjective Date of Service: 02/04/21 Chief Complaint: COVID-19 pneumonia Subjective: Worsening (Not doign well/ Hypoxic and SOB) Review of Systems General: Weakness Respiratory: Shortness of Breath Physical Examination - Vital Signs Temperature: 97.1 F Blood Pressure: 149/94 Pulse: 64 Respirations: 31 Pulse Ox (%): 93 - Physical Exam General: Alert, Oriented x3, Mild distress - Studies Medications List Reviewed: Yes Assessment & Plan - Problems (Diagnosis) (1) Pneumonia due to COVID-19 virus Current Visit: Yes Status: Acute Plan: REsp failure Notdoign well/ Add Barcitinib/ Brovana/ ABG hypoxemia/ increase solumederol
--- NOTE | 2021-02-04 12:32 | P.PN ---
Date of Service: 02/03/21 Subjective Patient is doing well; she is thinking about going home today. She say she will wait till tomorrow morning if that is okay. She is oxygenating well her O2 sats are 96%. Review of Systems 10-point ROS is otherwise unremarkable Physical Examination - Vital Signs reviewed - Physical Exam General: Alert, In no apparent distress, Oriented x3 Respiratory: Clear bilaterally Cardiovascular: Regular rate/rhythm, Normal S1 S2, No murmurs Gastrointestinal: Normal bowel sounds, Soft and benign, Non-distended, No tenderness Musculoskeletal: No clubbing, No swelling, No tenderness Neurological: Normal strength at 5/5 x4 extr, Sensation intact, Cranial nerves 3-12 intact Assessment & Plan - Problems (Diagnosis) (1) Pneumonia due to COVID-19 virus Current Visit: Yes Status: Acute - Plan Continue with plan of care as mentioned above: 1. Continue with steroids; CRP went up so was going to start Baricitinib; pharmacy stated guidelines were for patient to be on supplemental oxygen 2. Continuing to feel a little bit better. 3. Continue neb treatments as needed 4. GI and DVT prophylaxis
--- NOTE | 2021-02-04 12:35 | P.PN ---
Date of Service: 02/04/21 Subjective Pulmonary did blood gases and arterial oxygen is a little on the low side even though oxygen saturation is 96% on room air. She still remains a little tachypneic. Anxiety is better controlled. Chest x-ray with no significant changes. Anticipate discharge over the next 24-48 hr. Pulmonary was able to get Baricitinib started. Also, spoke with patient's mother. Patient's mother stated that she was told that patient was kind. I did correct this and told her that she is actually doing much better. Spoke with her regarding patient's care. Reviewed patient's records and I did treat her for asthma years ago. She at that time also had a prolonged hospital stay for asthma exacerbation. She apparently was not really doing much as she is on this admission. Will encourage her to get out of bed and start moving to a chair and anticipate discharge over the next 48 hr Review of Systems 10-point ROS is otherwise unremarkable Physical Examination - Vital Signs reviewed - Physical Exam General: Alert, In no apparent distress, Oriented x3 Respiratory: Clear bilaterally Cardiovascular: Regular rate/rhythm, Normal S1 S2, No murmurs Gastrointestinal: Normal bowel sounds, Soft and benign, Non-distended, No tenderness Assessment & Plan - Problems (Diagnosis) (1) Pneumonia due to COVID-19 virus Current Visit: Yes Status: Acute - Plan Continue with plan of care as mentioned above: 1. Continue with steroids; CRP went up so was going to start Baricitinib; pharmacy stated guidelines were for patient to be on supplemental oxygen 2. Continuing to feel a little bit better. However, gets a little worked up at times. I think this is a related to anxiety. Will repeat CT with chest x-ray depending on how she is doing clinically 3. Continue neb treatments as needed 4. GI and DVT prophylaxis
[2021-02-05] MEDS: IPRATROPIUM BROM 0.5MG/2.5ML NEB PRN (06:05)
[2021-02-05] MEDS: ARFORMOTEROL TARTRATE 15 MCG/2 ML VIAL.NEB NEB SCH ×2 (06:05→19:25)
[2021-02-05 06:58] LABS: Absolute Lymphocytes (CBC) 1.3 K/uL (0.7-4.9); Basophils % 0.2 % (0-1.3); Hematocrit 36.2 % (36.0-45.0); Lymphocytes % 7.8 % (15.3-44.8); MPV 9.5 fL (7.6-11.3); RBC Red Blood Cell Count 4.15 M/uL (3.86-4.86)
[2021-02-05 07:22] LABS: BUN Blood Urea Nitrogen 16 mg/dL (7-18); Bicarbonate 26 mmol/L (21-32); Glucose Level 179 mg/dL (74-106); Magnesium 1.9 mg/dL (1.8-2.4); NT PRO-BNP 72 pg/mL (<125); Potassium 4.1 mmol/L (3.5-5.1); Sodium Level 138 mmol/L (136-145)
[2021-02-05 07:29] LABS: C-Reactive Protein 35.3 mg/L (<3.00); Ferritin 336.4 ng/mL (8-388)
[2021-02-05] MEDS: VITAMIN D 1000 UNIT TAB PO SCH (09:20)
[2021-02-05] MEDS: ASPIRIN EC 81 MG TAB PO SCH (09:21)
[2021-02-05] MEDS: THIAMINE HCL 100 MG TABLET PO SCH (09:21)
[2021-02-05] MEDS: ZINC SULFATE 220 MG CAP PO SCH (09:21)
[2021-02-05] MEDS: ENOXAPARIN 40 MG/0.4 ML SQ SCH (09:21)
[2021-02-05] MEDS: clonazePAM 0.5 MG TAB PO SCH ×2 (09:21→19:56)
[2021-02-05] MEDS: ASCORBIC ACID 500 MG TABLET PO SCH ×4 (09:22→19:56)
[2021-02-05] MEDS: DULERA 200/5 (MOMETASONE/FORMOTEROL) INHALER IH SCH ×2 (09:22→19:56)
[2021-02-05] MEDS: NYSTATIN 500,000 UNIT/5 ML UDC PO SCH ×4 (09:22→19:56)
[2021-02-05] MEDS: METHYLPREDNISOLONE 40 MG INJ IV SCH ×3 (09:22→19:57)
[2021-02-05 10:10] LABS: Blood Morphology Comment NOT SEEN (NOT SEEN); Platelet Estimate ADEQ
--- NOTE | 2021-02-05 10:26 | P.PN ---
Date of Service: 02/05/21 Subjective Patient looks to be doing well clinically. CT scan was repeated and did not show any abnormalities except for some infiltrates. Oxygenating well. Patient does need to be able to get out of bed and anticipate discharge in the morning Review of Systems 10-point ROS is otherwise unremarkable Physical Examination - Vital Signs reviewed - Physical Exam General: Alert, In no apparent distress, Oriented x3 Respiratory: Clear bilaterally Cardiovascular: Regular rate/rhythm, Normal S1 S2, No murmurs Gastrointestinal: Normal bowel sounds, Soft and benign, Non-distended, No tenderness Assessment & Plan - Problems (Diagnosis) (1) Pneumonia due to COVID-19 virus Current Visit: Yes Status: Acute (2) Asthma exacerbation Current Visit: Yes Status: Acute - Plan Continue with plan of care as mentioned above: 1. Continue with steroids; on Baricitinib; pharmacy stated guidelines were for patient to be on supplemental oxygen 2. Continuing to feel a little bit better. However, gets a little worked up at times. I think this is a related to anxiety. Repeat CT scan with bilateral infiltrates but no significant worsening of the infiltrates and no pulmonary embolism 3. Continue neb treatments as needed; discharge with a nebulizer and neb treatments 4. GI and DVT prophylaxis
--- NOTE | 2021-02-05 10:37 | RAD REPORT ---
EXAM DESCRIPTION: RAD - Chest Single View - 02/05/2021 9:23 am CLINICAL HISTORY: Pneumonia Chest pain. COMPARISON: Chest Single View dated 02/03/2021; Chest Single View dated 01/29/2021; CHEST SINGLE VIEW dated 09/22/2011; CHEST SINGLE VIEW dated 09/21/2011 FINDINGS: Portable technique limits examination quality. Mild to moderate bilateral pulmonary opacities show no real significant change since prior study. The heart is normal in size. No displaced fractures. IMPRESSION: Stable chest since 02/03/2021.
--- NOTE | 2021-02-05 14:51 | P.PN ---
Subjective Date of Service: 02/05/21 Chief Complaint: COVID-19 pneumonia NCstill SOB on mild exertion/ Review of Systems Respiratory: Shortness of Breath, Hemoptysis Physical Examination - Vital Signs Temperature: 97.3 F Blood Pressure: 134/98 Pulse: 111 Respirations: 24 Pulse Ox (%): 96 - Physical Exam General: Alert, In no apparent distress, Oriented x3 - Studies Medications List Reviewed: Yes Assessment & Plan - Problems (Diagnosis) (1) Pneumonia due to COVID-19 virus Current Visit: Yes Status: Acute Plan: Still very SOB on mild exertion/ RA sat satisfactory/ Echo is normal/ Repat Ct angio
--- NOTE | 2021-02-05 15:52 | RAD REPORT ---
EXAM DESCRIPTION: CT - Chest Angio - 02/05/2021 3:31 pm CLINICAL HISTORY: Chest pain. RO PE COMPARISON: Chest For Pe Angio dated 01/30/2021 TECHNIQUE: CT angiogram of the pulmonary arteries was performed with MIP. All CT scans are performed using dose optimization technique as appropriate and may include automated exposure control or mA/KV adjustment according to patient size. FINDINGS: No evidence of pulmonary thromboembolism. No acute aortic finding demonstrated. [id number] bilateral interstitial lung opacities are present most likely indicating viral infec tion. Compared to 01/30/2021, it appears mildly worse. No significant pericardial or pleural fluid. No concerning bony finding. IMPRESSION: No evidence of pulmonary thromboembolism. Lung aeration has mildly worsened.
[2021-02-06 05:30] VITALS: BP 151/86; TEMP 96.8
[2021-02-06 08:18] VITALS: O2SAT 96
[2021-02-06] MEDS: METHYLPREDNISOLONE 40 MG INJ IV SCH (08:19)
[2021-02-06] MEDS: ASPIRIN EC 81 MG TAB PO SCH (08:19)
[2021-02-06] MEDS: VITAMIN D 1000 UNIT TAB PO SCH (08:19)
[2021-02-06] MEDS: ZINC SULFATE 220 MG CAP PO SCH (08:19)
[2021-02-06] MEDS: NYSTATIN 500,000 UNIT/5 ML UDC PO SCH (08:19)
[2021-02-06] MEDS: clonazePAM 0.5 MG TAB PO SCH (08:19)
[2021-02-06] MEDS: ENOXAPARIN 40 MG/0.4 ML SQ SCH (08:19)
[2021-02-06] MEDS: ASCORBIC ACID 500 MG TABLET PO SCH (08:19)
[2021-02-06] MEDS: THIAMINE HCL 100 MG TABLET PO SCH (08:19)
[2021-02-06] MEDS: DULERA 200/5 (MOMETASONE/FORMOTEROL) INHALER IH SCH (10:15)
[2021-02-06] MEDS: BENZONATATE 100 MG CAP PO PRN (10:15)
--- NOTE | 2021-02-06 17:42 | P.DS ---
Admission Date: 01/31/21 Discharge Date: 02/06/21 Disposition: ROUTINE DISCHARGE Discharge Condition: GOOD Reason for Admission: COVID-19 pneumonia Consultations: Pulmonary-Dr. Madrid Procedures: COVID: positive CT chest: COMPARISON: None Available. TECHNIQUE: CTA of the chest obtained following the uncomplicated intravenous administration of iodinated contrast. 3-D/MIP reformatted images of the chest available for evaluation. This exam was performed according to our departmental dose-optimization program, which includes automated exposure control, adjustment of the mA and/or kV according to patient size and/or use of iterative reconstruction technique. FINDINGS: Chest: Pulmonary arteries: Contrast bolus is adequate.No filling defects identified in the pulmonary arteries to suggest pulmonary embolus. Thyroid: No abnormalities of the visualized thyroid. Great Vessels: Great vessels have normal anatomic configuration. Thoracic Aorta: Atherosclerotic calcification of thoracic aorta. Heart: No cardiomegaly, significant pericardial effusion, or coronary artery atherosclerosis Lymph Nodes: No enlarged mediastinal lymph nodes identified. Esophagus: No abnormalities of the esophagus identified. Other: No additional findings. Lungs: Multifocal bilateral peripheral groundglass opacities. Pleura: No pleural effusion or pneumothorax. Trachea/Airways: No abnormalities of the visualized trachea or airways. Bones: No destructive osseous lesions. Upper Abdomen: Limited images of the upper abdomen demonstrate no definite abnormalities of visualized portions of the liver, pancreas, or spleen. IMPRESSION: 1. No pulmonary embolus. 2. Multifocal bilateral peripheral groundglass opacities. Commonly reported imaging features of viral pneumonia are present. Other processes such as influenza pneumonia and organizing pneumonia, as can be seen with drug toxicity and connective tissue disease, can cause a similar imaging pattern. Follow up CT chest: COMPARISON: Chest For Pe Angio dated 01/30/2021 TECHNIQUE: CT angiogram of the pulmonary arteries was performed with MIP. All CT scans are performed using dose optimization technique as appropriate and may include automated exposure control or mA/KV adjustment according to patient size. FINDINGS: No evidence of pulmonary thromboembolism. No acute aortic finding demonstrated. [id number] bilateral interstitial lung opacities are present most likely indicating viral infection. Compared to 01/30/2021, it appears mildly worse. No significant pericardial or pleural fluid. No concerning bony finding. IMPRESSION: No evidence of pulmonary thromboembolism. Lung aeration has mildly worsened. ECHO: MEASUREMENTS (cm) DIASTOLIC (NORMALS) SYSTOLIC (NORMALS) IVSd 0.8 (0.6-1.2) LA Diam 2.8 (1.9-4.0) LVEF 75% LVIDd 5.4 (3.5-5.7) LVIDs 3.0 (2.0-3.5) %FS 44% LVPWd 0.9 (0.6-1.2) Ao Diam 2.5 (2.0-3.7) 2 DIMENSIONAL ASSESSMENT: RIGHT ATRIUM: NORMAL LEFT ATRIUM: NORMAL RIGHT VENTRICLE: NORMAL LEFT VENTRICLE: NORMAL TRICUSPID VALVE: NORMAL MITRAL VALVE: NORMAL PULMONIC VALVE: NORMAL AORTIC VALVE: NORMAL PERICARDIAL EFFUSION: NONE AORTIC ROOT: NORMAL LEFT VENTRICULAR WALL MOTION: NORMAL DOPPLER/COLOR FLOW: MILD TRICUSPID REGURGITATION. COMMENTS: MILD TRICUSPID REGURGITATION. NORMAL RIGHT VENTRICULAR SYSTOLIC PRESSURE. NORMAL LEFT VENTRICULAR SIZE AND FUNCTION. NO WALL MOTION ABNORMALITY. NO EFFUSION. Medical problem list: Acute respiratory failure secondary with hypoxia to bilateral Covid pneumonia Brief History of Present Illness: 40-year-old -[place] female with history of asthma, hypertension presents emergency department for shortness of breath. Patient reports testing positive for Covid on 01/26/2021, symptoms since 01/24/2021. Patient evaluated in the emergency department, labs significant for elevated D-dimer 1195 sodium 135, chest x-ray/CT PE protocol demonstrate mild groundglass opacities bilaterally. Patient saturating in the low 90s on room air, tachypneic, dyspneic. Patient very symptomatic at this time, patient was admitted for treatment. Hospital Course: Patient presented with COVID 19 pneumonia. She was treated and improved during the course of her stay. She was seen by Pulmonary. At discharge, she does not require home oxygen. She will continue with Prednisone 20 mg one pill twice daily for 7 days then one pill once daily for 7 days. She will be provided Tessalon Perles 100 mg one pill twice daily as needed for cough. She will continue with Aspirin 81 mg daily, Vitamin D 2000 units daily, Thiamine 250 mg daily, Vitamin C 500 mg one pill 4 times a day. She will also continue with Symbicort 2 puffs twice daily. She will be provided a nebulizer machine. She will continue with Albuterol and Atrovent nebs one unit dose three times a day as needed for shortness of breath. She will need to continue to quarantine for another 10 days. She will need to continue with proning, incentive spirometer, and ambulation. She will follow up with her Primary Care Provider in one week to follow up this hospitalization. She will follow up with Pulmonary in one week. She will need to limit her activities at home. She will continue with COVID education and instructions. Vital Signs/Physical Exam: Temp Pulse Resp BP Pulse Ox 96.8 F 55 29 H 151/86 H 95 02/06/21 04:00 02/06/21 04:00 02/06/21 04:00 02/06/21 04:00 02/06/21 04:00 General: Alert, In no apparent distress, Oriented x3, Cooperative HEENT: Atraumatic Neck: Supple Respiratory: Clear to auscultation bilaterally, Normal air movement Cardiovascular: Normal pulses, Regular rate/rhythm Gastrointestinal: Normal bowel sounds, No tenderness, No masses, No rebound, No guarding Musculoskeletal: No erythema, No tenderness, No warmth Integumentary: No tenderness/swelling Neurological: Normal speech, Normal strength at 5/5 x4 extr, Normal tone, Normal affect Laboratory Data at Discharge: WBC 16.70 K/uL (4.3-10.9) H D 02/05/21 05:45 Hgb 12.2 g/dL (12.0-15.0) 02/05/21 05:45 Hct 36.2 % (36.0-45.0) 02/05/21 05:45 Plt Count 294 K/uL (152-406) D 02/05/21 05:45 PT 14.1 SECONDS (9.5-12.5) H 01/29/21 21:18 INR 1.22 01/29/21 21:18 Sodium 138 mmol/L (136-145) 02/05/21 05:45 Potassium 4.1 mmol/L (3.5-5.1) 02/05/21 05:45 BUN 16 mg/dL (7-18) 02/05/21 05:45 Creatinine 0.76 mg/dL (0.55-1.3) 02/05/21 05:45 Glucose 179 mg/dL (74-106) H 02/05/21 05:45 Magnesium 1.9 mg/dL (1.8-2.4) 02/05/21 05:45 Total Bilirubin 0.5 mg/dL (0.2-1.0) 01/31/21 04:20 AST 76 U/L (15-37) H 01/31/21 04:20 ALT 54 U/L (12-78) 01/31/21 04:20 Alkaline Phosphatase 87 U/L (45-117) 01/31/21 04:20 Lipase 167 U/L (73-393) 01/29/21 21:16 Home Medications: Levalbuterol Tartrate [Levalbuterol Tartrate Hfa] 2 puff IH Q4H PRN 01/30/21 hydroCHLOROthiazide [Hydrochlorothiazide*] 12.5 mg PO DAILY 01/30/21 Ascorbic Acid [Vitamin C] 500 mg PO Q6H #90 capsule 02/05/21 Benzonatate [Tessalon Perle*] 100 mg PO TID PRN #30 cap 02/05/21 Budesonide/Formoterol Fumarate [Symbicort 160-4.5 Mcg Inhaler] 1 puff IH BID #1 hfa.aer.ad 02/05/21 Ipratropium/Albuterol Sulfate [Iprat-Albut 0.5-3(2.5) mg/3 ml] 3 ml IH Q6H #60 ampul.neb 02/05/21 Nebulizer Accessories [Aeroneb Go] 1 each MC DAILY #1 each 02/05/21 Nebulizer [Aeroneb Go Nebulizer] 1 each MC DAILY #1 each 02/05/21 Thiamine HCl [Vitamin B-1] 250 mg PO DAILY #30 tablet 02/05/21 Zinc Sulfate [Zinc Sulfate*] 220 mg PO DAILY #30 cap 02/05/21 clonazePAM [Klonopin] 0.5 mg PO BID PRN #30 tablet 02/05/21 Aspirin [Aspirin EC 81 MG] 81 mg PO DAILY #30 tablet. 02/06/21 Cholecalciferol (Vitamin D3) [Vitamin D 1000 Iu Tab] 2,000 unit PO DAILY #60 tab 02/06/21 predniSONE [Prednisone*] 20 mg PO SEECOM #21 tab 02/06/21 New Medications: Nebulizer Accessories [Aeroneb Go] 1 each MC DAILY #1 each Nebulizer [Aeroneb Go Nebulizer] 1 each MC DAILY #1 each Aspirin [Aspirin EC 81 MG] 81 mg PO DAILY #30 tablet. Ipratropium/Albuterol Sulfate [Iprat-Albut 0.5-3(2.5) mg/3 ml] 3 ml IH Q6H #60 ampul.neb clonazePAM [Klonopin] 0.5 mg PO BID PRN #30 tablet PRN Reason: Anxiety predniSONE [Prednisone*] 20 mg PO SEECOM #21 tab Budesonide/Formoterol Fumarate [Symbicort 160-4.5 Mcg Inhaler] 1 puff IH BID #1 hfa.aer.ad Benzonatate [Tessalon Perle*] 100 mg PO TID PRN #30 cap PRN Reason: Cough Thiamine HCl [Vitamin B-1] 250 mg PO DAILY #30 tablet Ascorbic Acid [Vitamin C] 500 mg PO Q6H #90 capsule Cholecalciferol (Vitamin D3) [Vitamin D 1000 Iu Tab] 2,000 unit PO DAILY #60 tab Zinc Sulfate [Zinc Sulfate*] 220 mg PO DAILY #30 cap Physician Discharge Instructions: PROBLEM: COVID-19 Pneumonia GOAL: Clear understanding of disease process E-scripts sent to [facility] in [place]. INSTRUCTIONS: Patient presented with COVID 19 pneumonia. She was treated and improved during the course of her stay. She was seen by Pulmonary. At discharge, she does not require home oxygen. She will continue with Prednisone 20 mg one pill twice daily for 7 days then one pill once daily for 7 days. She will be provided Tessalon Perles 100 mg one pill twice daily as needed for cough. She will continue with Aspirin 81 mg daily, Vitamin D 2000 units daily, Thiamine 250 mg daily, Vitamin C 500 mg one pill 4 times a day. She will also continue with Symbicort 2 puffs twice daily. She will be provided a nebulizer machine. She will continue with Albuterol and Atrovent nebs one unit dose three times a day as needed for shortness of breath. She will need to continue to quarantine for another 10 days. She will need to continue with proning, incentive spirometer, and ambulation. She will follow up with her Primary Care Provider in one week to follow up this hospitalization. She will follow up with Pulmonary in one week. She will need to limit her activities at home. She will continue with COVID education and instructions. If you have any question for the nurse please feel free to call at [phone]. Diet: Regular Activity: Fall precautions IMMUNIZATION Influenza Vaccine Indicated: Influenza Vaccine Given: Date Given: Pneumonia Vaccine Indicated: No Pneumonia Vaccine Given: Date Given: Diet: Regular Activity: Fall precautions Followup: Bismark Madrid MD [ACTIVE - CAN ADMIT] - 1 Week (Follow up in office in 1 week. Call to schedule an appointment.) Matt Schmitt MD [Primary Care Provider] - 1 Week (Follow up in office in 1 week. Call to schedule an appointment. ) Time spent managing pt's care (in minutes): 55
== END 2021-02-06 11:45 | disposition home or self-care (01) | DRG 177 ==
LOC: ER 18:14 → ERHOLD 01-30 02:53 → 3RD-ICU 01-30 15:38 → OBSVTOIN 01-31 07:39
PROVIDERS: ADMIT Hospitalist; ATTEND Hospitalist
DX: U07.1 COVID-19 (principal); J12.82 Pneumonia due to coronavirus disease 2019; J96.01 Acute respiratory failure with hypoxia; J45.901 Unspecified asthma with (acute) exacerbation; F41.9 Anxiety disorder, unspecified
CPT/HCPCS: 36415; 71045; 71275; 80048; 80053; 80076; 81003; 82728; 82805; 83605; 83690; 83735; 83880; 84439; 84443; 84484; 84703; 85025; 85379; 85610; 86140; 87070; 87081; 87804; 93005; 93306; 94640; 96361; 96365; 96375; 99285; G0378; J1650; J2270; J2405; J2920; J2930; J3475; J7030; J7050; J7605; J7606; Q9967